=== PATIENT | male | born 1990 | race African-American/Black ===

== ENCOUNTER 2017-07-13 14:39 | Emergency (ER) | payer MEDICAID ==
[2017-07-13 14:57] VITALS: TEMP 98.1
[2017-07-13] MEDS ORDERED: HYDROGEN PEROXIDE 236 ML BOTTLE TP ONE (15:06)
--- NOTE | 2017-07-13 15:17 | EDPHY ---
H & P Stated Complaint: Bilateral ear pain, face pain, neck pain. just moved to altitude Time Seen by Provider: 07/13/17 15:09 HPI/ROS: CHIEF COMPLAINT: earache, fever HISTORY OF PRESENT ILLNESS: This is a 27-year-old male with a history of Crohn' s disease (in remission) status post colostomy who presents with almost 2 weeks subjective fever, mild sore throat, cough, and bilateral earache. He also notes on and off tooth ache. He denies headache at the time of my interview. He does not have a stiff neck. REVIEW OF SYSTEMS: A ten point review of systems was performed and is negative with the exception of the items mentioned in the HPI. Past medical history: Crohn's disease Past surgical history: Colostomy 2014 Social history: He is new to [place]. He works at [employer]. General Appearance: Alert. Vital signs reviewed. Blood pressure 145/101 at triage. Eyes: Pupils equal and round, no conjunctival injection, no discharge. Anicteric. ENT, Mouth: Tympanic membranes normal. External auditory canals normal. Mucous membranes are moist, no oropharyngeal erythema or edema. Gingiva normal. Tooth 20 is fractured. Teeth 5. And 6 are tender to percussion. No sinus tenderness. No sinus drainage in the posterior oropharynx. Neck: Mild bilateral anterior cervical lymphadenopathy, supple. Respiratory: Lungs are clear to auscultation; no wheezes, rales, or rhonchi. Cardiovascular: Regular rate and rhythm; no murmur, rub, or gallop. Gastrointestinal: Abdomen is soft and nontender, no masses or organomegaly, bowel sounds normal. Colostomy bag in place. Skin: Warm and dry, no rashes on exposed skin, normal color. Back: Nontender to palpation over the thoracolumbar spine. No CVAT. Neurological: Alert and oriented. Moving all four extremities easily and equally. Psychiatric: Normal affect. - Personal History Current Tetanus/Diphtheria Vaccine: Yes Current Tetanus Diphtheria and Acellular Pertussis (TDAP): Yes - Medical/Surgical History Hx Asthma: No Hx Chronic Respiratory Disease: No Hx Diabetes: No Hx Cardiac Disease: No Hx Renal Disease: No Hx Cirrhosis: No Hx Alcoholism: Yes Hx HIV/AIDS: No Hx Splenectomy or Spleen Trauma: No Other PMH: Chrons with colostomy - Social History Smoking Status: Current every day smoker Constitutional: Initial Vital Signs Temperature (C) 36.7 C 07/13/17 14:54 Heart Rate 61 07/13/17 14:54 Respiratory Rate 18 07/13/17 14:54 Blood Pressure 145/101 H 07/13/17 14:54 O2 Sat (%) 97 07/13/17 14:54 O2 Delivery Mode Room Air Allergies/Adverse Reactions: Penicillins Allergy (Verified 07/13/17 14:54) Home Medications: Medication Instructions Recorded Clindamycin HCl [Clindamycin] 300 mg PO TID #30 cap 07/13/17 Hydrocodone/APAP 5/325 [[place] 1 - 2 tab PO Q4 PRN #10 tab 07/13/17 5/325 (RX)] ED Images - Head Mouth: 1 - Fractured tooth Medical Decision Making ED Course/Re-evaluation: Cerumen impaction was treated by nursing staff prior to my evaluation. Tympanic membranes are clear. I do not suspect influenza--although he reports sore throat soda exam is normal, he is not coughing, and he does not have fever. He does not have clinical signs of sinusitis. I think that his discomfort is related to a dental problem. I am going to start him on antibiotics and provide some pain medication. He is being referred to dental aid. I have contacted them, but have not had a call back this evening. Differential Diagnosis: Considered a differential diagnosis that includes but is not limited to otitis media, cerumen impaction, sinusitis, upper respiratory infection, influenza, dental infection. - Data Points Medications Given: Discontinued Medications Ibuprofen (Motrin) 600 mg PO EDNOW ONE Stop: 07/13/17 15:23 Last Admin: 07/13/17 15:26 Dose: 600 mg Departure - Departure Disposition: Home, Routine, Self-Care Clinical Impression: Toothache Condition: Good Instructions: Toothache (ED) Additional Instructions: Take the antibiotics as prescribed. I am referring you to [facility] for treatment. I am also referring you to [facility] for ongoing care. You will need to register with them as a patient. Adult Pain & Fever Control: We recommend Acetaminophen (Tylenol) and Ibuprofen (Motrin,Advil) for pain and fever control. When fever is high or pain severe, both drugs can be used at the same time, but at different intervals. Please note the time differences. Your dose is: Acetaminophen 650mg every 4 to 6 hours Ibuprofen 400mg every 6 hours with food OR Note: do not take Acetaminophen with Hydrocodone (Vicodin, Lortab) or Oycodone (Percocet). These medications also contain Acetaminophen. No more than 3000mg of Acetaminophen should be taken in 24 hours (for an adult). patient. Watch your overall dose of ibuprofen. You can take ibuprofen 400 mg every 6 hr. Do not exceed that dosage. Referrals: [facility],. [Clinic] - As per Instructions [facility] [Outside] - As per Instructions Stand Alone Forms: Narcotic Guidelines, Work Excuse Prescriptions: Clindamycin HCl [Clindamycin] 300 mg PO TID #30 cap Hydrocodone/APAP 5/325 [[place] 5/325 (RX)] 1 - 2 tab PO Q4 PRN #10 tab PRN Reason: pain
[2017-07-13] MEDS ORDERED: IBUPROFEN 600 MG TAB PO ONE (15:22)
[2017-07-13 16:28] VITALS: BP 117/105; PULSE 65; RESP 16; O2SAT 97
== END 2017-07-13 16:30 | disposition home or self-care (01) ==
DX: K08.89 Other specified disorders of teeth and supporting structures (principal); F17.200 Nicotine dependence, unspecified, uncomplicated

== ENCOUNTER 2017-07-15 14:00 | Emergency (ER) | payer MEDICAID ==
[2017-07-15 14:11] VITALS: BP 117/72; PULSE 59; RESP 16; TEMP 98.4; O2SAT 98
--- NOTE | 2017-07-15 14:43 | EDPHY ---
H & P Stated Complaint: Here 3/4 for dental infect;didn't get antibx filled. Wants cheaper one Time Seen by Provider: 07/15/17 14:42 HPI/ROS: HPI: This is a 27-year-old male who presents with Chief Complaint: Here3/4 for dental infect;didn't get antibx filled. Wants cheaper one Location: Right bottom tooth Quality: Pain Duration: 1-2 weeks Signs and Symptoms: No jaw swelling, no trismus, no difficulty swallowing, no difficulty opening mouth, no fever Timing: Daily Severity: Moderate Context: Patient has a history of Crohn's disease in remission status post colostomy presents to the emergency room the 2nd time with # 19/20 toothache. Patient last ER visit on 07/13/2017 was given clindamycin due to penicillin allergy as well as pain medications. Patient was referred to [facility]. Patient reports he has not heard back from dental aide. Clindamycin cost over 100 dollars. When further questioned but penicillin allergy patient reports that he thinks that his mother told him that he developed a rash as a young child. He does not believe he actually has a penicillin allergy and is requesting amoxicillin as it costs substantially less. Able to drink and eat with minimal difficulty. + tobacco user Modifying Factors: None Comment: ROS: see HPI Constitutional: No fever, no chills, no weight loss Eyes: No blurred vision Respiratory: No shortness of breath, no cough Cardiovascular: No chest pain Gastrointestinal: No nausea, no vomiting, no diarrhea Genitourinary: No dysuria Extremities: No myalgias Neurologic: No weakness, no numbness Skin: No rashes Hematologic: No bruising, no bleeding MEDICAL/SURGICAL/SOCIAL HISTORY: Medical history: Generally healthy. Does not take any regular medications. Surgical history: Denies Social history: Unemployed CONSTITUTIONAL: Well-developed, well-nourished adult male, nontoxic in appearance, awake and alert, no obvious distress HEENT: Atraumatic and normocephalic, PERRL, EOMI. Tympanic membranes clear. Oropharynx clear, no exudate and moist pink mucosa. Poor dentition; multiple fractured teeth with dental cavity. Tooth number 29 is blackened; tender to palpation. No gingival swelling/fluctuant. Airway patent. No lymphadenopathy. No meningismus. No malocclusion. No TMJ tenderness. Able to open up mouth 2 finger widths. Cardiovascular: Normal S1/S2, regular rate, regular rhythm, without murmur rub or gallop. PULMONARY/CHEST: Symmetrical and nontender. Clear to auscultation bilaterally. Good air movement. No accessory muscle usage. ABDOMEN: Soft, nondistended, nontender, no rebound, no guarding, no peritoneal signs, no masses or organomegaly. No CVAT. EXTREMITIES: 2/2 pulses, strength 5/5, no deformities, no clubbing, no cyanosis or edema. NEUROLOGICAL: no focal neuro deficits. GCS 15. SKIN: Warm and dry, no erythema. no rash. Good capillary refill. Source: Patient Exam Limitations: No limitations - Personal History Current Tetanus Diphtheria and Acellular Pertussis (TDAP): Yes - Medical/Surgical History Hx Asthma: No Hx Chronic Respiratory Disease: No Hx Diabetes: No Hx Cardiac Disease: No Hx Renal Disease: No Hx Cirrhosis: No Hx Alcoholism: Yes Hx HIV/AIDS: No Hx Splenectomy or Spleen Trauma: No Other PMH: Chrons with colostomy - Social History Smoking Status: Current every day smoker Constitutional: Initial Vital Signs Temperature (C) 36.9 C 07/15/17 14:08 Heart Rate 59 L 07/15/17 14:08 Respiratory Rate 16 07/15/17 14:08 Blood Pressure 117/72 07/15/17 14:08 O2 Sat (%) 98 07/15/17 14:08 O2 Delivery Mode Room Air Allergies/Adverse Reactions: No Known Allergies Allergy (Unverified 07/15/17 15:20) Home Medications: Medication Instructions Recorded Clindamycin HCl [Clindamycin] 300 mg PO TID #30 cap 07/13/17 Hydrocodone/APAP 5/325 [[place] 1 - 2 tab PO Q4 PRN #10 tab 07/13/17 5/325 (RX)] Amoxicillin Trihydrate [Amoxil] 500 mg PO TID 30 Days cap 07/15/17 Chlorhexidine Gluconate [Periogard] 15 ml MM Q4HRS #240 mouthwash 07/15/17 Medical Decision Making ED Course/Re-evaluation: No signs abscess/cellulitis/neurological deficits Given amoxicillin- monitored for over an hour without any adverse reactions of anaphylaxis/respiratory distress. Patient also given prescription for chlorhexidine mouthwash. Called dental aide and made referral again. This patient was seen under the supervision of my secondary supervising physician. I evaluated care for this patient independently. Differential Diagnosis: Differential diagnosis includes but is not limited to periapical abscess, cracked tooth, facial cellulitis. - Data Points Medications Given: Discontinued Medications Amoxicillin (Amoxicillin) 500 mg PO EDNOW ONE PRN Reason: Protocol Stop: 07/15/17 15:19 Last Admin: 07/15/17 15:28 Dose: 500 mg Tramadol HCl (Ultram) 100 mg PO EDNOW ONE Stop: 07/15/17 15:21 Last Admin: 07/15/17 15:28 Dose: 100 mg Departure - Departure Disposition: Home, Routine, Self-Care Clinical Impression: Odontalgia Condition: Good Instructions: Toothache (ED) Additional Instructions: Stop smoking tobacco. [place] your teeth minimum of 2 times per day. Take all of the antibiotic as directed until complete. Referrals: [facility] [Outside] - As per Instructions Prescriptions: Chlorhexidine Gluconate [Periogard] 15 ml MM Q4HRS #240 mouthwash Amoxicillin Trihydrate [Amoxil] 500 mg PO TID 30 Days cap
[2017-07-15] MEDS ORDERED: traMADol 50 MG TAB PO ONE (15:20)
== END 2017-07-15 15:30 | disposition home or self-care (01) ==
DX: K08.89 Other specified disorders of teeth and supporting structures (principal); F17.200 Nicotine dependence, unspecified, uncomplicated

== ENCOUNTER 2017-08-16 04:18 | Emergency (ER) | payer MEDICAID ==
[2017-08-16 04:30] VITALS: BP 152/98
--- NOTE | 2017-08-16 04:36 | EDPHY ---
H & P Stated Complaint: meth use Time Seen by Provider: 08/16/17 04:22 HPI/ROS: Chief Complaint: Methamphetamine use HPI: 27-year-old male presenting with concerns about his experience using methamphetamine for the 1st time. Patient states that he has been using methamphetamine for the last 24 hr. Patient states that he has been feeling increasingly paranoid and that people are watching him. He states he is feeling a bit better now. Has never used methamphetamine before. Is not feeling suicidal homicidal. No headache. No chest pain. No nausea or vomiting. Does use occasional marijuana but otherwise does substance use in the past. Otherwise is without complaint. Denies alcohol use. Patient is currently awake alert and appropriate and sarahi for safety. ROS: 10 point Review of Systems is negative except as noted in the HPI. PMH: Crohn's disease status post bowel resection with ostomy Social History: No smoking, occasional alcohol, occasional marijuana Family History: non-contributory Physical Exam: Gen: Awake, Alert, No Distress HEENT: Nose: no rhinorrhea Eyes: PERRLA, EOMI Mouth: Moist mucosa Neck: Supple, no JVD Chest: nontender, lungs clear to auscultation Heart: S1, S2 normal, no murmur Abd: Soft, non-tender, no guarding Back: no CVA tenderness, no midline tenderness Ext: no edema, non-tender Skin: no rash Neuro: CN II-XII intact, Sensation grossly intact, Strength 5/5 in bilateral upper and lower extremities - Personal History Current Tetanus Diphtheria and Acellular Pertussis (TDAP): Yes - Medical/Surgical History Hx Asthma: No Hx Chronic Respiratory Disease: No Hx Diabetes: No Hx Cardiac Disease: No Hx Renal Disease: No Hx Cirrhosis: No Hx Alcoholism: Yes Hx HIV/AIDS: No Hx Splenectomy or Spleen Trauma: No Other PMH: Chrons with colostomy - Social History Smoking Status: Current every day smoker Constitutional: Initial Vital Signs Temperature (C) 36.8 C 08/16/17 04:28 Heart Rate 60 08/16/17 04:28 Respiratory Rate 20 08/16/17 04:28 Blood Pressure 152/98 H 08/16/17 04:28 O2 Sat (%) 98 08/16/17 04:28 O2 Delivery Mode Room Air Allergies/Adverse Reactions: Penicillins Allergy (Verified 08/16/17 04:28) Home Medications: Medication Instructions Recorded Clindamycin HCl [Clindamycin] 300 mg PO TID #30 cap 07/13/17 Hydrocodone/APAP 5/325 [[place] 1 - 2 tab PO Q4 PRN #10 tab 07/13/17 5/325 (RX)] Amoxicillin Trihydrate [Amoxil] 500 mg PO TID 30 Days cap 07/15/17 Chlorhexidine Gluconate [Periogard] 15 ml MM Q4HRS #240 mouthwash 07/15/17 Medical Decision Making ED Course/Re-evaluation: 27-year-old male presenting with complete turns about some mild paranoia after methamphetamine use. He is not acutely psychotic at this time. He he is sarahi for safety. Patient has been cautioned to discontinue use of methamphetamine given his dangers and side effects. Patient is feeling improved. Will discharge with outpatient follow-up as needed. Departure - Departure Disposition: Home, Routine, Self-Care Clinical Impression: Methamphetamine abuse Condition: Good Instructions: Methamphetamine Abuse (ED) Additional Instructions: Return to the emergency department for any concerns. Referrals: Medina Luther MD [Medical Doctor] - As per Instructions
--- NOTE | 2017-08-25 17:07 | ASMTCMCOM ---
CM Note CM Note Notes: [facility] intervention today (08/25/17): Naveed has a colostomy, crohne's disease. No current PCP. Moved here recently from [place] to start a new life; doesn't plan to return. 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 He is insured through Medicaid. An appointment was made at [facility] for 11:20am 08/26/17. [facility] will continue to assist on an outpatient basis in an effort to guide Naveed to good management of his chronic condition. Date Signed: 08/25/2017 05:06 PM Electronically Signed By:Julita Vigil RN
== END 2017-08-16 05:08 | disposition home or self-care (01) ==
LOC: EDUNIT#
DX: F15.10 Other stimulant abuse, uncomplicated (principal); F17.200 Nicotine dependence, unspecified, uncomplicated